=== PATIENT | female | born 1980 | race Caucasian/White ===

== ENCOUNTER 2022-12-26 15:28 | Outpatient (CLI) | payer MEDICAID | END 2022-12-26 15:29 | disposition home or self-care (01) | LOC: CSHMAMMO 15:28 | PROVIDERS: ATTEND Nurse Practitioner Women's Health | DX: Z12.31 Encounter for screening mammogram for malignant neoplasm of breast (principal); N64.89 Other specified disorders of breast | CPT/HCPCS: 77067 ==

== ENCOUNTER 2023-01-10 07:52 | Outpatient (CLI) | payer MEDICAID | END 2023-01-10 07:53 | disposition home or self-care (01) | LOC: CSHMAMMO 07:52 | PROVIDERS: ATTEND Nurse Practitioner Women's Health | DX: N64.89 Other specified disorders of breast (principal) | CPT/HCPCS: G0279 ==

== ENCOUNTER 2024-01-12 | Outpatient (CLI) | payer BC | END 2024-01-12 09:58 | disposition home or self-care (01) | DX: E04.1 Nontoxic single thyroid nodule (principal) ==

== ENCOUNTER 2024-08-24 10:14 | Outpatient (CLI) | payer BC | END 2024-08-24 10:15 | disposition home or self-care (01) | LOC: CSHRAD 10:14 | PROVIDERS: ATTEND Family Medicine | DX: R06.2 Wheezing (principal); J22 Unspecified acute lower respiratory infection | CPT/HCPCS: 71046 ==